=== PATIENT | male | born 1980 | race American Indian/Alaskan Native ===

== ENCOUNTER 2022-02-17 07:07 | Observation (INO) | payer OTHER ==
[2022-02-14 11:32] LABS: Hematocrit 45.3 % (35.5-45.6); Hemoglobin 15.8 gm/dl (11.8-15.2); Mean Corpuscular HGB Conc 35 % (32-34); Mean Corpuscular Volume 92 fl (84-94); Platelet Count 257 K/mm3 (140-440); Red Blood Count 4.95 M/mm3 (3.65-5.03); Red Cell Distribution Width 12.8 % (13.2-15.2)
--- NOTE | 2022-02-14 12:02 | Anesthesia Consultation ---
Anesthesia Consult and Med Hx Date of service: 02/17/22 - Airway Anesthetic Teeth Evaluation: Chipped ROM Head & Neck: Adequate Mental/Hyoid Distance: Adequate Mallampati Class: Class III Intubation Access Assessment: Probably Good - Pre-Operative Health Status ASA Pre-Surgery Classification: ASA2 Proposed Anesthetic Plan: General - Pulmonary Hx Smoking: No Hx Sleep Apnea: No (SEFERINO PRE SCREEN LOW RISK) - Cardiovascular System Hx Hypertension: No Hx Peripheral Vascular Disease: Yes (ED) - Central Nervous System Hx Psychiatric Problems: No - Hematic Hx Anemia: No - Other Systems Hx Cancer: No
[2022-02-14 12:09] LABS: Alanine Aminotransferase 51 units/L (7-56); Albumin 4.9 g/dL (3.9-5); BUN/Creatinine Ratio 9; Blood Urea Nitrogen 10 mg/dL (9-20); Calcium 9.8 mg/dL (8.4-10.2); Hemolysis Index 3
[~2022-02-17 07:07] MED LIST: ACETAMINOPHEN 500 MG TAB PO ONE; ACETAMINOPHEN 500 MG TAB PO SCH; CELECOXIB 200 MG CAP PO SCH; GABAPENTIN 300 MG CAP PO SCH; LACTATED RINGERS 1,000 ML IV SCH; MAGNESIUM OXIDE 400 MG TAB PO ONE; MAGNESIUM OXIDE 400 MG TAB PO SCH; MIDAZOLAM 2 MG/2 ML INJ IV NR
--- NOTE | 2022-02-17 07:27 | Anesthesia Day of Surgery ---
Anesthesia Day of Surgery - Day of Surgery Patient Examined: Yes Patient H&P Reviewed: Yes Patient is NPO: Yes
[2022-02-17] MEDS ORDERED: HYDROmorphone 0.5 MG/0.5 ML INJ IV PRN (07:29)
[2022-02-17] MEDS ORDERED: ONDANSETRON 4 MG/2 ML INJ IV PRN ×2 (07:29→12:19)
[2022-02-17] MEDS ORDERED: VANCOMYCIN/NS 1 GM/250 ML 1 GM/250 ML BAG IV NR (08:00)
[2022-02-17] MEDS ORDERED: GENTAMICIN/NS 120MG/100ML 120 MG/100 ML BAG IV ONE (08:00)
[2022-02-17] MEDS ORDERED: GENTAMICIN 120 MG in SODIUM CHLORIDE 0.9% 100 ML IV SCH (08:00)
[2022-02-17] MEDS ORDERED: NALOXONE 0.4 MG/1 ML INJ IV PRN (08:24)
[2022-02-17] MEDS ORDERED: TOBRAMYCIN 40 MG/ML VIAL 2 ML IV ONE ×2 (08:30→11:53)
[2022-02-17] MEDS ORDERED: TOBRAMYCIN 80 MG in SODIUM CHLORIDE 0.9% 100 ML IV SCH (09:00)
[2022-02-17] MEDS ORDERED: ACETAMINOPHEN 325 MG TAB PO PRN (09:00)
[2022-02-17] MEDS ORDERED: propofoL 200 MG/20 ML VIAL IV ONE (09:26)
[2022-02-17] MEDS ORDERED: HYDROmorphone 1 MG/1 ML INJ ONE (09:26)
[2022-02-17] MEDS ORDERED: LIDOCAINE MPF (2%) 20 MG/1 ML VIAL 5 ML ONE (09:26)
[2022-02-17] MEDS ORDERED: BUPIVACAINE/PF (0.5%) 5 MG/1 ML 30 ML VIAL INFILTRATI ONE (10:15)
[2022-02-17] MEDS ORDERED: rifAMPin 600 MG VIAL ONE (10:16)
[2022-02-17] MEDS ORDERED: NEOMY 40 MG/POLYMYXIN B 200,000 UNITS/ML (GU) AMPULE IR ONE ×2 (10:16→11:50)
[2022-02-17] MEDS ORDERED: SODIUM CHLORIDE P/F VIAL 10 ML 30 ML ONE (10:16)
[2022-02-17] MEDS ORDERED: SODIUM CHLORIDE 0.9% 500 ML 500 ML ONE (10:17)
[2022-02-17] MEDS ORDERED: SODIUM CHLORIDE 0.9% IRR 1,500 ML BOTTLE IR ONE (11:50)
[2022-02-17] MEDS ORDERED: BUPIVACAINE/PF (0.5%) 5 MG/1 ML 10 ML VIAL INFILTRATI ONE (11:50)
[2022-02-17] MEDS ORDERED: SODIUM CHLORIDE 0.9% P/F 10 ML VIAL INFILTRATI ONE (11:51)
[2022-02-17] MEDS ORDERED: rifAMPin 600 MG VIAL IV ONE (11:52)
[2022-02-17] MEDS ORDERED: SODIUM CHLORIDE 0.9% 500 ML IVPB IV ONE (11:52)
[2022-02-17] MEDS ORDERED: LACTATED RINGERS 1,000 ML ONE (11:55)
--- NOTE | 2022-02-17 12:19 | Short Stay Summary ---
Short Stay Documentation Date of service: 02/17/22 - History H&P: obtained from office - Allergies and Medications Current Medications: Allergies No Known Allergies Allergy (Verified 02/10/22 18:03) Home Medications Medication Instructions Recorded Confirmed Last Taken Type No Known Home Medications [No 02/10/22 02/10/22 Unknown History Reported Home Medications] Active Medications Acetaminophen (Acetaminophen 500 Mg Tab) 1,000 mg PO PREOP PRATIK Stop: 02/17/22 23:59 Last Admin: 02/17/22 07:30 Dose: 1,000 mg Acetaminophen (Acetaminophen 325 Mg Tab) 650 mg PO Q4H PRN PRN Reason: Pain MILD(1-3)/Fever >100.5/CORREA Hydrocodone Bitart/Acetaminophen (Hydrocodone/Acetaminophen 5-325 Mg Tab) 2 each PO Q6H PRN PRN Reason: Pain, Moderate (4-6) Celecoxib (Celecoxib 200 Mg Cap) 400 mg PO PREOP PRATIK Last Admin: 02/17/22 07:30 Dose: 400 mg Gabapentin (Gabapentin 300 Mg Cap) 600 mg PO PREOP PRATIK Last Admin: 02/17/22 07:30 Dose: 600 mg Hydromorphone HCl (Hydromorphone 0.5 Mg/0.5 Ml Inj) 0.5 mg IV Q10MIN PRN PRN Reason: Pain , Severe (7-10) Stop: 02/17/22 23:59 Lactated Ringer's (Lactated Ringers) 1,000 mls @ 125 mls/hr IV DIRECT PRATIK Last Admin: 02/17/22 07:40 Dose: 125 mls/hr Vancomycin HCl (Vancomycin/Ns 1 Gm/250 Ml) 1 gm in 250 mls @ 166.667 mls/hr IV PREOP NR; Protocol Stop: 02/17/22 23:59 Magnesium Oxide (Magnesium Oxide 400 Mg Tab) 400 mg PO ONCE PRATIK Stop: 02/17/22 23:59 Last Admin: 02/17/22 07:30 Dose: 400 mg Midazolam HCl (Midazolam 2 Mg/2 Ml Inj) 2 mg IV PREOP NR Stop: 02/17/22 23:59 Last Admin: 02/17/22 10:27 Dose: 2 mg Morphine Sulfate (Morphine 4 Mg/1 Ml Inj) 4 mg IV Q4H PRN PRN Reason: Pain , Severe (7-10) Naloxone HCl (Naloxone 0.4 Mg/1 Ml Inj) 0.1 mg IV Q2MIN PRN PRN Reason: Res Rate </= 8 or 02 SAT < 92% Ondansetron HCl (Ondansetron 4 Mg/2 Ml Inj) 4 mg IV ONCE PRN PRN Reason: Nausea And Vomiting Stop: 02/17/22 23:59 - Brief post op/procedure progress note Date of procedure: 02/17/22 Pre-op diagnosis: ed Post-op diagnosis: same Procedure: ipp coloplast 20cm Anesthesia: GETA Surgeon: VARUN BROWNE Estimated blood loss: minimal Pathology: none Condition: stable - Hospital course Hospital course: pt has abx, pain meds, post op info dc ken & dressing---looks good - Disposition Condition at discharge: Stable Disposition: 01 HOME / SELF CARE / HOMELESS Short Stay Discharge Plan Follow up with: CLOVIS STONE MD [Primary Care Provider] - 7 Days
[2022-02-17] MEDS ORDERED: HYDROmorphone 2 MG TAB PO PRN (12:33)
--- NOTE | 2022-02-17 13:13 | Operative Report ---
DATE OF SURGERY: 02/17/2022 PREOPERATIVE DIAGNOSIS: Erectile dysfunction, status post priapism in the remote past. POSTOPERATIVE DIAGNOSIS: Erectile dysfunction, status post priapism in the remote past. PROCEDURES: Insertion of an inflatable penile prosthesis (Coloplast 20 cm), pharmacologic injection of corporal bodies. SURGEON: Alton Wilcox MD INFORMATICA ARCHITECT: Kristina Stern. ANESTHESIA: General. ESTIMATED BLOOD LOSS: Minimal. FLUIDS: Crystalloid. COMPLICATIONS: No complications. INDICATIONS: This 41-year-old gentleman relocated from [place] with a long history of erectile dysfunction, refractory to medical management. He had a 2-day history of priapism after going to a [facility] and having penile injections. He has not had good erection since that time, he has tried shockwave lithotripsy. He has a vacuum erection device; however, it does not work very well. He reviewed the information we discussed in detail. He is circumcised with a significant amount of scar tissue on the shaft. After discussion including could not make it bigger, he agreed to proceed with surgical intervention. DESCRIPTION OF PROCEDURE: The patient was taken to the operative suite, placed in a supine position. After adequate general anesthesia, he was prepped and draped in a sterile fashion. Cardenas catheter was placed on the operative field. Kristina Stern was present at the bedside to facilitate as an assist throughout the procedure. 60 mL of 0.25% Marcaine was injected into the corporal body. Again, he did have some fibrous tissue noted, 1 cm subcutaneous nodular area in the mid-shaft along the urethra. I did not open this area. Transscrotal incision was made with a Bovie. Sharp dissection was taken down to the corporal bodies. Dissection of the scar tissue was performed; 2-0 Vicryl stay sutures were placed. Corporotomies were made with the Bovie. Very little bleeding in the corporal bodies were noted. Measurements revealed 20 cm, I was able to dilate with the Lala dilators to 13 mm. Using a 20 cm Coloplast Titan device, it was prepped. The 125 mL Conceal reservoir was prepped and placed in the retropubic space via the right external ring; 100 mL of saline was placed. The cylinders were prepped, placed in the corporal bodies with the aid of a Ross needle. Corporotomies were closed with 2-0 Vicryl in a running fashion. The quick click connection system was used to connect the reservoir to the pump. Insufflation of the device revealed a good cosmetic appearance. He did have a fair amount of edema from his previous scar tissue. The tips of the cylinders could not make it to the mid-glans, but they were at the base of the glans penis and I was concerned for a distal erosion. Copious irrigation was performed. Adequate hemostasis was achieved. The pump was placed in the dependent portion of the scrotum. A 2-0 Vicryl was used to secure a pursestring suture and the dartos layer was then closed with 2-0 Vicryl in a running fashion. Skin was closed with 3-0 Vicryl in interrupted fashion. Xeroform gauze, collodion and a mummy wrap was placed. The patient tolerated the procedure well and will be observed overnight. He is going to go home on Bactrim and Alliance. TID: [id number] RECEIPT: [id number] DKC/ARV
[2022-02-17] MEDS: ceFAZolin/NS 1 GM/50 ML 1 GM/50 ML BAG IV SCH ×2 (15:50→23:22)
--- NOTE | 2022-02-17 15:52 | Post Anesthesia Evaluation ---
- Post Anesthesia Evaluation Patient Participated: Yes Airway Patent: Yes Stable Respiratory Function: Yes Nausea/Vomiting: No Temp > 96.8F: Yes Pain Manageable: Yes Adequeate Hydration: Yes Anesthesia Complications: No
[2022-02-17] MEDS: SODIUM CHLORIDE 0.45% 1000 ML 1,000 ML IV SCH (16:47)
[2022-02-17] MEDS: HYDROcodone/ACETAMINOPHEN 5-325 MG TAB PO PRN (16:47)
[2022-02-17] MEDS: MORPHINE 4 MG/1 ML INJ IV PRN ×2 (18:20→23:22)
[2022-02-18] MEDS: SODIUM CHLORIDE 0.45% 1000 ML 1,000 ML IV SCH ×2 (00:48→09:29)
[2022-02-18] MEDS: HYDROcodone/ACETAMINOPHEN 5-325 MG TAB PO PRN ×3 (01:37→13:25)
[2022-02-18] MEDS: MORPHINE 4 MG/1 ML INJ IV PRN ×2 (03:33→07:33)
[2022-02-18] MEDS: ceFAZolin/NS 1 GM/50 ML 1 GM/50 ML BAG IV SCH (06:23)
[2022-02-18 06:27] VITALS: BP 124/77
--- NOTE | 2022-02-18 12:49 | Post Anesthesia Evaluation ---
- Post Anesthesia Evaluation Patient Participated: Yes Airway Patent: Yes Stable Respiratory Function: Yes Nausea/Vomiting: No Temp > 96.8F: Yes Pain Manageable: Yes Adequeate Hydration: Yes Anesthesia Complications: No Block Receding Appropriately: Not Applicable Patient on Ventilator: No
== END 2022-02-18 13:42 | disposition home or self-care (01) ==
LOC: OR 07:07 → 3A 08:24
PROVIDERS: ADMIT Urology; ATTEND Urology
DX: N52.01 Erectile dysfunction due to arterial insufficiency (principal); Z20.822 Contact with and (suspected) exposure to COVID-19; N52.9 Male erectile dysfunction, unspecified
CPT/HCPCS: 36415; 54405; 80053; 85027; 96365; 96366; 96375; 96376; C1813; G0378; G0379; J0690; J1170; J1580; J2250; J2270; J2704; J3260; J3370; J3490; J7030; J7040; J7120; U0003